=== PATIENT | female | born 1970 | race Caucasian/White ===

== ENCOUNTER 2017-04-12 12:19 | Emergency (ER) | payer OTHER, SELFPAY ==
[~2017-04-12] VITALS: Ht 149.9 cm; Wt 109.6 kg
[2017-04-12] MEDS ORDERED: MEDR5TAB2 PO (14:30)
[2017-04-12] MEDS ORDERED: METF500T27 PO (14:30)
[2017-04-12] MEDS ORDERED: PERP4TAB6 PO (14:30)
[2017-04-12] MEDS ORDERED: LEVO100T5 PO (14:30)
[2017-04-12] MEDS ORDERED: OMEP-110 PO (14:30)
[2017-04-12] MEDS ORDERED: SODIUM CHLORIDE FLUSH 10ML SYR IVF ONE (15:00)
[2017-04-12] MEDS ORDERED: SODIUM CHLORIDE 0.9% 1,000ML IVBOLUS ONE (15:00)
[2017-04-12] MEDS ORDERED: ONDANSETRON 2MG/ML, 2ML IVPush ONE (15:00)
[2017-04-12 15:25] LABS: ASPARTATE AMINO TRANSFERASE 32 U/L (15-37); BLOOD UREA NITROGEN 10 mg/dL (7-18)
[2017-04-12 15:51] LABS: PATH.CAST-FLAG NOT PRESENT; SPERM-FLAG NOT PRESENT; SRC-FLAG NOT PRESENT; XTAL-FLAG NOT PRESENT; YLC-FLAG NOT PRESENT
[2017-04-12 16:37] VITALS: BP 146/76
== END 2017-04-12 16:52 | disposition home or self-care (01) ==
LOC: ED 16:31
DX: R10.30 Lower abdominal pain, unspecified (principal); D50.9 Iron deficiency anemia, unspecified; R58 Hemorrhage, not elsewhere classified; E11.65 Type 2 diabetes mellitus with hyperglycemia
CPT/HCPCS: 36415; 76830; 80053; 81001; 84703; 85025